=== PATIENT | male | born 1990 | race Caucasian/White ===

== ENCOUNTER 2019-05-29 07:37 | Emergency (ER) | payer SELFPAY ==
[~2019-05-29] VITALS: Ht 175.3 cm; Wt 115.7 kg
[2019-05-29 07:46] VITALS: Ht 175.3 cm; Wt 115.7 kg
[2019-05-29 09:49] VITALS: BP 175/90
== END 2019-05-29 09:49 | disposition home or self-care (01) ==
LOC: ED 07:37
DX: J02.0 Streptococcal pharyngitis (principal)
CPT/HCPCS: 87804; J0561